=== PATIENT | male | born 1935 | race Caucasian/White ===

== ENCOUNTER 2017-04-20 00:34 | Emergency (ER) | payer MEDICARE ==
[2017-04-20] MEDS ORDERED: Adacel (T-DAP) 0.5 ML VIAL ONE (01:04)
[2017-04-20] MEDS ORDERED: Acetaminophen 500 MG TAB ONE (01:28)
--- NOTE | 2017-04-20 08:00 | CT ---
PRELIMINARY REPORT/[facility]/EMERGENCY AFTER HOURS PROCEDURE: EXAM: CT Head Without Intravenous Contrast CLINICAL HISTORY: 82 years old, male; Injury or trauma; Fall; Initial encounter; Laceration; Without loss of consciousn ess; Without residual foreign body; Eye; Right; Patient HX: Fall after standing up too fast in hot ba th. Lac to right eyebrow, pt on blood thinners, C/O neck pain and [facility]VES TECHNIQUE: Axial computed tomography images of the head/brain without intravenous contrast. All CT scans at this facility use one or more dose reduction techniques, viz.: automated exposure control; ma/kV adjustme nt per patient size (including targeted exams where dose is matched to indication; i.e. head); or ite rative reconstruction technique. COMPARISON: No relevant prior studies available. FINDINGS: Brain: Mild volume loss No hemorrhage. Mild white matter disease. No edema. Ventricles: Unremarkable. No ventriculomegaly. Bones/joints: Unremarkable. No acute fracture. Soft tissues: Mild right frontal scalp swelling noted Sinuses: Unremarkable as visualized. No acute sinusitis. Mastoid air cells: Unremarkable as visualized. No mastoid effusion. IMPRESSION: No intracranial hemorrhage.Please see discussion above. Thank you for allowing us to participate in the care of your patient. Dictated and Authenticated by: Renny Dickson MD 04/20/2017 1:55 AM Central Time ([place] & [place]) FINAL REPORT CT BRAIN WITHOUT CONTRAST: Date: 04/20/17 HISTORY: Trauma. COMPARISON: CT brain dated 10/07/12. FINDINGS/IMPRESSION: Findings and impression are concordant with the preliminary report by Maureen. POS: [facility]
--- NOTE | 2017-04-20 08:01 | CT ---
PRELIMINARY REPORT/[facility]/EMERGENCY AFTER HOURS PROCEDURE: EXAM: CT Cervical Spine Without Intravenous Contrast CLINICAL HISTORY: 82 years old, male; Injury or trauma; Fall; Initial encounter; Blunt trauma and laceration; Without f oreign body; Patient HX: Fall after standing up too fast in hot bath. Lac to right eyebrow, pt on blo od thinners, C/O neck pain and ALVES TECHNIQUE: Axial computed tomography images of the cervical spine without intravenous contrast. All CT scans at this facility use one or more dose reduction techniques, viz.: automated exposure control; ma/kV adjustment per patient size (including targeted exams where dose is matched to indication; i.e. head) ; or iterative reconstruction technique. Coronal and sagittal reformatted images were created and reviewed. COMPARISON: No relevant prior studies available. FINDINGS: Vertebrae: Loss of vertebral body height, presumed degenerative No acute fracture. Discs/spinal canal/neural foramina: No acute findings. Central canal and foraminal stenosis pronounce d at C5-C6. Soft tissues: Unremarkable. Lung apices: Unremarkable as visualized. IMPRESSION: No definite acute cervical fracture observed Thank you for allowing us to participate in the care of your patient. Dictated and Authenticated by: Renny Dickson MD 04/20/2017 1:56 AM Central Time ([place] & [place]) FINAL REPORT CT CERVICAL SPINE WITHOUT CONTRAST: Date: 04/20/17 HISTORY: Trauma. Fall. Neck pain. COMPARISON: None. FINDINGS/IMPRESSION: Findings and impression are concordant with the preliminary report by Maureen. POS: [facility]
== END 2017-04-20 02:15 | disposition home or self-care (01) ==
LOC: SCSER 00:34
DX: S01.81XA Laceration without foreign body of other part of head, initial encounter (principal); S01.111A Laceration without foreign body of right eyelid and periocular area, initial encounter; M48.02 Spinal stenosis, cervical region; K21.9 Gastro-esophageal reflux disease without esophagitis; E78.5 Hyperlipidemia, unspecified; I10 Essential (primary) hypertension; F41.9 Anxiety disorder, unspecified; Z85.038 Personal history of other malignant neoplasm of large intestine; Z79.01 Long term (current) use of anticoagulants; Z79.899 Other long term (current) drug therapy; W01.10XA Fall on same level from slipping, tripping and stumbling with subsequent striking against unspecified object, initial encounter
CPT/HCPCS: 12011; 70450; 72125; 90471; 90715

== ENCOUNTER 2017-04-22 14:46 | Outpatient (CLI) | payer MEDICARE | END 2017-04-22 14:47 | disposition home or self-care (01) | LOC: BICRAD 14:46 | PROVIDERS: ATTEND Internal Medicine | DX: R07.9 Chest pain, unspecified (principal) | CPT/HCPCS: 71046 ==

== ENCOUNTER 2017-11-13 11:39 | Outpatient (CLI) | payer MEDICARE ==
--- NOTE | 2017-11-13 12:56 | RAD ---
PORTABLE AP PELVIS: Date: 11-13-17 History: Chronic bilateral hip pain. FINDINGS: There is mild osteoarthritis involving each hip, greater on the right. No fracture or dislocation is seen. Vascular calcifications are seen in the iliac and femoral arteries. Surgical clips overlie the pelvis as well as phleboliths overlying the pelvis. IMPRESSION: 1. Mild bilateral hip osteoarthritis. No acute osseous abnormality is seen. 2. Atherosclerotic vascular calcifications. POS: [facility]
--- NOTE | 2017-11-13 13:47 | RAD ---
2 VIEWS RIGHT AND LEFT HIP: Date: 11/13/17 INDICATION: History of chronic hip pain. FINDINGS: There is mild degenerative arthrosis of the right and left hip. No acute fracture or subluxation is g rossly evident. There is diffuse osteopenia. There is scattered vascular calcification. There are num erous surgical clips within the lower central pelvis. Small phleboliths seen within the lower hemipel vis. There is prominent dextroscoliosis to the lower lumbar spine. IMPRESSION: 1. No definite acute osseous abnormality. 2. Mild degenerative arthrosis of both hips. 3. Diffuse osteopenia, POS: [facility]
--- NOTE | 2017-11-14 11:57 | RAD ---
LEFT HIP TWO VIEWS: HISTORY: Pain. COMPARISON: None. FINDINGS: The exam is severely limited due to patient rotation. No acute displaced fracture. The left obturator ring appears to be intact. Moderate vascular calcifications. Surgical clips in t he pelvis. Scoliotic change of the lower lumbar spine. IMPRESSION: Chronic changes. No acute abnormality. POS: [facility]
== END 2017-11-13 11:40 | disposition home or self-care (01) ==
LOC: SCSRAD 11:39
PROVIDERS: ATTEND Internal Medicine
DX: M25.551 Pain in right hip (principal); M25.552 Pain in left hip; M16.0 Bilateral primary osteoarthritis of hip; M85.80 Other specified disorders of bone density and structure, unspecified site
CPT/HCPCS: 72170

== ENCOUNTER 2018-03-10 12:20 | Outpatient (CLI) | payer MEDICARE ==
--- NOTE | 2018-03-10 15:25 | MRI ---
MRI LUMBAR SPINE WITHOUT IV CONTRAST: INDICATIONS: Lumbar stenosis with neurogenic claudication. COMPARISON: Prior MRI lumbar spine, dated 09/04/2016. FINDINGS: Prominent dextroscoliosis, centered at the L2-L3 level, is stable. Multilevel disk degenerative dise ase is similar appearing. The conus is seen to terminate proximally at L1. The visualized retroperi toneum and paravertebral soft tissues appear within normal limits. At L5-S1, there is prominent loss of disk space height. There is an asymmetric to the right disk ost eophyte complex that induces moderate right and mild left neural foraminal narrowing, which is stable . At L4-L5, there is an asymmetric to the right broad-based disk osteophyte complex with moderate to se shonda right and mild left facet joint degenerative change. There is mild to moderate right neural for aminal narrowing, which is stable. At L3-L4, there is an asymmetric to the right disk osteophyte complex with facet hypertrophy, inducin g stable mild to moderate central canal narrowing and moderate right lateral recess narrowing, due to the disk osteophyte complex and facet joint degenerative change. There is severe right and mild to moderate left neural foraminal narrowing, which is stable. At L2-L3, there is a broad-based disk osteophyte complex with facet hypertrophy, inducing mild to mod erate central canal narrowing, which is improved from the prior exam. The small focal disc protrusio n has resolved in the interim. There is stable moderate right and moderate to severe left neural for aminal narrowing. At L1-L2, there is a broad-based disk osteophyte complex and facet hypertrophy, inducing severe left and mild right neural foraminal narrowing, which is stable. At T12-L1, there is a broad-based disk osteophyte complex, asymmetric to the left, inducing severe le ft and mild right neural foraminal narrowing, which is stable. IMPRESSION: 1. Interval resolution of the left paracentral disc protrusion seen at L2-L3, with some improvement in the degree of central canal narrowing present. The broad-based disk osteophyte complex and facet joint degenerative change induces mild to moderate central canal narrowing. 2. Stable moderate central canal narrowing at L3-L4 with moderate right lateral recess narrowing. 3. Stable multilevel neural foraminal narrowing. POS: [facility]
== END 2018-03-10 12:21 | disposition home or self-care (01) ==
LOC: SCSMRI 12:20
PROVIDERS: ATTEND Anesthesiology Pain Medicine
DX: M48.062 Spinal stenosis, lumbar region with neurogenic claudication (principal); M48.05 Spinal stenosis, thoracolumbar region; M51.26 Other intervertebral disc displacement, lumbar region; M47.816 Spondylosis without myelopathy or radiculopathy, lumbar region
CPT/HCPCS: 72148

== ENCOUNTER 2018-08-19 09:26 | Emergency (ER) | payer MEDICARE | END 2018-08-19 10:24 | disposition home or self-care (01) | LOC: SCSER 09:26 | DX: S00.412A Abrasion of left ear, initial encounter (principal); K21.9 Gastro-esophageal reflux disease without esophagitis; E78.5 Hyperlipidemia, unspecified; I10 Essential (primary) hypertension; F41.9 Anxiety disorder, unspecified; Z79.899 Other long term (current) drug therapy; Z79.82 Long term (current) use of aspirin; Z79.01 Long term (current) use of anticoagulants; X58.XXXA Exposure to other specified factors, initial encounter | CPT/HCPCS: 99282 ==

== ENCOUNTER 2018-10-02 10:35 | Outpatient (CLI) | payer MEDICARE ==
--- NOTE | 2018-10-02 15:21 | NM ---
NM Bone Scan STANDARD HISTORY: Diffuse bone pain. COMPARISON: None. FINDINGS: Examination is performed using 27 mCi 90 9M technetium MDP. This shows a scoliotic change t o the lumbar spine. There is some associated arthritic type changes in this area. Otherwise a normal distribution of the radiopharmaceutical. Bilateral renal as well as bladder activity is presen t. IMPRESSION: Essentially unremarkable bone scan. No evidence for metastatic disease.
== END 2018-10-02 10:36 | disposition home or self-care (01) ==
LOC: NM 10:35
PROVIDERS: ATTEND Internal Medicine
DX: M89.8X9 Other specified disorders of bone, unspecified site (principal); C41.9 Malignant neoplasm of bone and articular cartilage, unspecified
CPT/HCPCS: 78306; A9503

== ENCOUNTER 2018-10-20 16:34 | Outpatient (CLI) | payer MEDICARE ==
[2018-10-20 16:48] LABS: Hemoglobin 13.2 g/dL (14.0-18.0); Mean Corpuscular HGB CONC 34.5 g/dL (32.0-36.0); Mean Corpuscular Hemoglobin 32.7 pg (27.0-31.0); Mean Corpuscular Volume 94.8 fL (78.0-98.0); Mean Platelet Volume 8.6 fL (7.4-10.4); Platelet Count 131 thou/uL (130-400); RBC Distribution Width 12.2 % (11.5-14.5); Red Blood Cell (RBC) Count 4.03 mill/uL (4.70-6.10); White Blood Cell (WBC) Count 4.2 thou/uL (4.8-10.8)
[2018-10-20 17:02] LABS: ALT (SGPT) 16 U/L (8-55); AST (SGOT) 17 U/L (5-34); Alkaline Phosphatase 79 U/L (40-150); Anion Gap 12 mmol/L (10-20); BUN (Urea Nitrogen) 21 mg/dL (8.4-25.7); Bilirubin, Total 0.5 mg/dL (0.2-1.2); CK (CPK) 61 U/L (30-200); CRP (Inflammatory) Less than 0.50 mg/dL (= or < 0.5); Calc. Creatinine Clearance 0 mL/min (70-130); Calcium 9.9 mg/dL (7.8-10.44); Carbon Dioxide 26 mmol/L (23-31); Chloride 107 mmol/L (98-107); Estimated GFR-MDRD 52; Globulin 2.8 g/dL (2.4-3.5); Glucose 92 mg/dL (83-110); Phosphorus 3.2 mg/dL (2.3-4.7); Potassium 4.3 mmol/L (3.5-5.1); Protein, Total 6.8 g/dL (5.8-8.1); Sodium 141 mmol/L (136-145)
--- NOTE | 2018-10-20 18:26 | RAD ---
TWO VIEWS LEFT HIP: 10/20/18 HISTORY: Patient unable to stand or lay in a supine position. COMPARISON: 11/13/17. FINDINGS: No fracture or dislocation seen involving the left hip. Surgical clips again overlie the pelvis. Vasc ular calcifications are again seen in the iliac and femoral arteries. There has been no interval change from prior study. IMPRESSION: Stable views left hip without evidence of an acute osseous abnormality. POS: [facility]
--- NOTE | 2018-10-20 18:30 | RAD ---
AP PELVIS RADIOGRAPH: 10/20/18 HISTORY: Lower back pain. Patient unable to stand for long periods of time or lay in a supine position. COMPARISON: 11/13/17. FINDINGS: There is mild bilateral hip osteoarthritis unchanged from the prior exam. No fracture or dislocation is seen. Vascular calcifications are again seen in the iliac and femoral a rteries. Surgical clips overlie the pelvis. IMPRESSION: Stable radiographic appearance of the pelvis with bilateral hip osteoarthritis. POS: [facility]
--- NOTE | 2018-10-20 18:54 | RAD ---
TWO VIEWS LUMBAR SPINE WITH STANDIN10/20/18 HISTORY: Lower back pain. Patient unable to stand for long periods of time and unable to lay in a supine posit ion. COMPARISON: 09/04/16. FINDINGS: Again, there is right convex rotoscoliosis of the thoracolumbar spine. There is narrowing of the inte rvertebral disc spaces at all levels with osteophytes seen throughout the lumbar spine. No fracture o r subluxation Is appreciated. Vascular calcifications are again seen in the abdominal aorta and involving the iliac arteries. Surgical clips again overlie the pelvis. IMPRESSION: Stable right convex rotoscoliosis of the thoracolumbar spine with multilevel degenerative changes aga in seen. POS: [facility]
--- NOTE | 2018-10-20 18:56 | RAD ---
TWO VIEWS RIGHT HIP: 10/20/18 HISTORY: Low back pain. Patient unable to stand for long periods of time. FINDINGS: No fracture or dislocation is seen. There is a rim of osteophytes seen at the femoral head/neck junct ion unchanged from prior study in 2018. No fracture or dislocation seen. Surgical clips overlie the p nancy. Vascular calcifications are seen in the region of the iliac and femoral arteries. IMPRESSION: 1. Osteoarthritis right hip. 2. No acute osseous abnormality. 3. Vascular calcifications. POS: [facility]
[2018-10-21 17:14] LABS: ANA Symphony (Qualitative) Negative (Negative); ANA Symphony (Quantitative) 0.1 Ratio (< 0.7 Negative); CCP IgG Antibody 0.7 EliAU/mL (<7 Negative); EliA RAS New Method **** NEW METHOD ****; EliA Thy New Method **** NEW METHOD ****; EliA Vaculitis New Method **** NEW METHOD ****; Mitochondrial Ab 0.6 U/mL (<4 Negative); Rheumatoid Factor IgA Antibody 4.5 IU/mL (<14 Negative); Rheumatoid Factor IgM Antibody 0.9 IU/mL (<3.5 Negative); Thyroid Peroxidase IgG Ab Less than 4.0 IU/mL (<25 Normal)
== END 2018-10-20 16:35 | disposition home or self-care (01) ==
LOC: SCSRAD 16:34
PROVIDERS: ATTEND Internal Medicine
DX: M25.551 Pain in right hip (principal); M25.552 Pain in left hip; M54.5 Low back pain; R10.2 Pelvic and perineal pain; M16.11 Unilateral primary osteoarthritis, right hip; I70.90 Unspecified atherosclerosis; M41.85 Other forms of scoliosis, thoracolumbar region; M47.815 Spondylosis without myelopathy or radiculopathy, thoracolumbar region
CPT/HCPCS: 36415; 72100; 72170; 80053; 82550; 83516; 83520; 83970; 84100; 84443; 85027; 85652; 86038; 86140; 86160; 86200; 86225; 86376